=== PATIENT | male | born 1990 | race American Indian/Alaskan Native ===

== ENCOUNTER 2017-06-30 09:11 | Emergency (ER) | payer OTHER ==
[2017-06-30 09:26] VITALS: BP 115/62; PULSE 62; RESP 20; TEMP 98; O2SAT 98
[2017-06-30] MEDS ORDERED: Albuterol-Ipratrop 3 mg / 0.5 (3 ml) UD INH STA (09:41)
--- NOTE | 2017-06-30 10:14 | ED PDOC ---
HPI: SOB/CHF/COPD Time Seen by Provider: 06/30/17 09:25 Chief Complaint (Nursing): Shortness Of Breath Chief Complaint (Provider): Asthma History Per: Patient History/Exam Limitations: no limitations Onset/Duration Of Symptoms: Days (x1) Current Symptoms Are (Timing): Still Present Associated Symptoms: Other (Chest tightness) Additional Complaint(s): Bobby Sanon is a 26 year old male, with a past medical history of anxiety and asthma, who presents to the emergency department complaining of shortness of breath onset for 1 day. He reports chest tightness, and wheezing but denies any fever and cough. Patient states he hasn't been able to use nebulizer since he has been moving around [place] a lot. He visited [facility] but left due to a long waiting time. PMD: None provided Past Medical History Reviewed: Historical Data, Nursing Documentation, Vital Signs Vital Signs: Last Vital Signs Temp 98 F 06/30/17 09:23 Pulse 62 06/30/17 09:23 Resp 20 06/30/17 09:23 BP 115/62 06/30/17 09:23 Pulse Ox 98 06/30/17 11:05 - Medical History PMH: Anxiety, Asthma - Family History Family History: States: Unknown Family Hx - Social History Current smoker - smoking cessation education provided: No Alcohol: None Drugs: Denies - Allergies Allergies/Adverse Reactions: Allergies Allergy/AdvReac Type Severity Reaction Status Date / Time naproxen Allergy Severe ANAPHYLAXIS Verified 06/30/17 09:23 Review of Systems ROS Statement: Except As Marked, All Systems Reviewed And Found Negative Constitutional: Negative for: Fever Respiratory: Positive for: Shortness of Breath, Wheezing. Negative for: Cough Physical Exam - Reviewed Nursing Documentation Reviewed: Yes Vital Signs Reviewed: Yes - Physical Exam Appears: Positive for: Well, Non-toxic, No Acute Distress Head Exam: Positive for: ATRAUMATIC, NORMAL INSPECTION, NORMOCEPHALIC Skin: Positive for: Normal Color, Warm, Dry Eye Exam: Positive for: EOMI, Normal appearance, PERRL ENT: Positive for: Normal ENT Inspection Neck: Positive for: Normal, Painless ROM, Supple Cardiovascular/Chest: Positive for: Regular Rate, Rhythm Respiratory: Positive for: Decreased Breath Sounds, Wheezing (bilateral wheezing ). Negative for: Respiratory Distress Gastrointestinal/Abdominal: Positive for: Normal Exam, Bowel Sounds, Soft Back: Positive for: Normal Inspection Extremity: Positive for: Normal ROM Neurologic/Psych: Positive for: Alert, Oriented, Other (speak full sentences) - ECG O2 Sat by Pulse Oximetry: 98 (RA) Pulse Ox Interpretation: Normal Medical Decision Making Medical Decision Making: Initial Impression: Asthma exacerbation Initial Plan: --Chest Two views (PA/LAT)[RAD] --Duoneb 3 mg/0.5 mg (3ml) UD --Peak flow pre/post TX Time: 09:41 FINDINGS: LINES AND TUBES: None. LUNG AND PLEURA: The lungs are well inflated and clear. There is bibasilar atelectasis. There are no pleural effusions or pneumothorax. HEART AND MEDIASTINUM: The heart is not enlarged. The hilar and mediastinal contours are within normal limits. SKELETAL STRUCTURES: The bony structures are within normal limits for the patient's age. VISUALIZED UPPER ABDOMEN: Normal. OTHER FINDINGS: None. IMPRESSION: No active pulmonary disease. Scribe Attestation: Documented by Costa Mauro, acting as a scribe for Svetlana Calderon MD. Provider Scribe Attestation: All medical record entries made by the Scribe were at my direction and personally dictated by me. I have reviewed the chart and agree that the record accurately reflects my personal performance of the history, physical exam, medical decision making, and the department course for this patient. I have also personally directed, reviewed, and agree with the discharge instructions and disposition. Disposition - Clinical Impression Clinical Impression: Asthma - Disposition Disposition: Left W/O Treatment Disposition Time: 10:33 Condition: UNKNOWN Forms: dox[employer] (Slovak)
--- NOTE | 2017-06-30 10:57 | RAD ---
HISTORY: COMPARISON: No prior. TECHNIQUE: Chest PA and lateral FINDINGS: LINES AND TUBES: None. LUNG AND PLEURA: The lungs are well inflated and clear. There is bibasilar atelectasis. There are no pleural effusions or pneumothorax. HEART AND MEDIASTINUM: The heart is not enlarged. The hilar and mediastinal contours are within normal limits. SKELETAL STRUCTURES: The bony structures are within normal limits for the patient's age. VISUALIZED UPPER ABDOMEN: Normal. OTHER FINDINGS: None. IMPRESSION: No active pulmonary disease.
== END 2017-06-30 10:41 | disposition home or self-care (01) ==
LOC: H.ER 09:11
DX: J45.901 Unspecified asthma with (acute) exacerbation (principal); Z86.59 Personal history of other mental and behavioral disorders